=== PATIENT | male | born 1950 | race Caucasian/White ===

== ENCOUNTER 2017-06-26 12:30 | Emergency (ER) | payer OTHER ==
[~2017-06-26 12:30] MED LIST: ALAVERT10 M1 PO; AMOXICILLIN500 MG PO; ASPIRIN81 M1 PO; AZELASTINE NS; CARVEDILOL12.5 MG PO; CENTRUM SILVER1 TA2 PO; CIPROFLOXACIN500 MG PO; CLARITIN10 MG PO; CYCLOBENZAPRINE5 MG PO; DAYPRO600 M1 PO; GABAPENTIN300 M1 PO; GLIPIZIDE XL5 MG PO; GLIPIZIDE5 MG PO; IMDUR30 MG PO; KEFLEX500 MG PO; LANTUS100 U/ML SC; LIPITOR20 MG PO; LISINOPRIL10 MG PO; LISINOPRIL5 MG PO; MACROBID100 M1 PO; MEDROL DOSEPAK4 MG PO; MELOXICAM15 MG PO; NIACIN500 M3 PO; OMEPRAZOLE DR20 MG PO; PERCOCET 325 MG1 TA2 PO; PERCOCET 325 MG1 TA7 PO; PREDNISONE20 MG PO; TAMSULOSIN HYD0.4 MG PO; ULTRAM50 MG PO; VITAMIN D31000 IU PO; VYTORIN 10 MG-41 TA1 PO; ZITHROMAX Z PA250 MG PO; [UNRECOGNIZED DRUG - OTHER] NS
[2017-06-26 12:37] VITALS: BP 133/77
[2017-06-26] MEDS ORDERED: NAPROSYN500 MG PO (12:56)
[2017-06-26] MEDS ORDERED: AMOXICILLIN500 M2 PO (12:56)
== END 2017-06-26 13:29 | disposition home or self-care (01) ==
LOC: ED 12:30
DX: K08.89 Other specified disorders of teeth and supporting structures (principal); F17.200 Nicotine dependence, unspecified, uncomplicated; Z79.899 Other long term (current) drug therapy; Z79.82 Long term (current) use of aspirin

== ENCOUNTER → 2017-07-12 | Day surgery (SDC) | payer MEDICARE ==
[~2017-07-12] VITALS: Ht 170.1 cm; Wt 97.5 kg
[~2017-07-12] MED LIST changes: +AMOXICILLIN500 M2 PO; +LANTUS SOL100 UNIT/1 SC; -LANTUS100 U/ML SC; +NAPROSYN500 MG PO; +TAMSULOSIN HCL0.4 MG PO
--- NOTE | ~2017-07-12 | O ---
[place], [place] OPERATIVE NOTE NAME: JONNY MCRAE UNIT #: [id number] ROOM: DOCTOR: JG HERNDON MD BIRTHDATE: [birth year] DOS: 07/12/2017 HISTORY OF PRESENT ILLNESS: This is a 66-year-old patient who is presented with colonic screening, undergoing investigation. ALLERGIES: No known medication. FAMILY HISTORY: Noncontributory. PAST SURGICAL HISTORY: Appendectomy. PAST MEDICAL HISTORY: Asthma, hypertension, hyperlipidemia, diabetes mellitus. SOCIAL HISTORY: He is a smoker, nonalcohol consumer. PROCEDURE: Todays' procedure part of investigation is colonoscopy plus polypectomy x 3. PREMEDICATION: Versed and Diprivan. SCOPE: Olympus forward-viewing colonoscope 10L video. REPORT: After putting the patient in the left lateral position, application of lubricant to rectal pouch and digital examination, scope was introduced. Thereafter, under direct visualization, advanced through the length of colon without difficulty. Polypoid lesion in the rectal pouch, polypoid lesion in sigmoid colon with piecemeal polypectomy was removed and another polypoid lesion at the hepatic flexure with a snare polypectomized, base of cecum explored, appendiceal orifice identified, and scope was gradually withdrawn from ascending, transverse, descending colon. The patient extubated, tolerated procedure well. IMPRESSION: Colonic polyp, rubbery in character at the hepatic flexure, status post snare polypectomy. Two other polypectomies as the sigmoid and rectal pouch with piecemeal polypectomy without any concerns. I will be concerned about the results of the pathology on the polyp at hepatic flexure. I thank you very much indeed for your very kind referral. [place], [place] OPERATIVE NOTE NAME: JONNY MCRAE UNIT #: [id number] ROOM: DOCTOR: JG HERNDON MD BIRTHDATE: [birth year] JG HERNDON MD CM:OPRECORD:OPERATIVE NOTE [id number] JG HERNDON MD 07/12/17 1010 interface
[2017-07-12 07:06] VITALS: BP 144/87
[2017-07-12 07:57] VITALS: BP 108/69
[2017-07-12 08:12] VITALS: BP 126/79
[2017-07-12 08:27] VITALS: BP 141/72
== END | disposition home or self-care (01) ==
LOC: SDC 07-06 12:30
DX: Z12.11 Encounter for screening for malignant neoplasm of colon (principal); D12.8 Benign neoplasm of rectum; K63.5 Polyp of colon; E11.9 Type 2 diabetes mellitus without complications; J45.909 Unspecified asthma, uncomplicated; I10 Essential (primary) hypertension; I25.2 Old myocardial infarction; E78.00 Pure hypercholesterolemia, unspecified; F17.210 Nicotine dependence, cigarettes, uncomplicated; Z88.8 Allergy status to other drugs, medicaments and biological substances; Z90.49 Acquired absence of other specified parts of digestive tract

== ENCOUNTER → 2020-09-25 | Outpatient (CLI) | payer OTHER ==
[2020-09-25 11:57] LABS: ALBUMIN 3.5 gm/dl (3.1-4.5); BUN 11 mg/dl (7-24); CHLORIDE 109 mmol/L (98-107); HDL CHOLESTEROL 33 mg/dl (40-60); POTASSIUM 4.5 mmol/L (3.5-5.1); SODIUM 141 mmol/L (136-145)
[2020-09-25 12:02] LABS: ALKALINE PHOSPHATASE 100 U/L (45-117); BILIRUBIN, DIRECT 0.1 mg/dL (0.0-0.2); CHOLESTEROL 146 mg/dL (<200); CREATININE 0.96 mg/dL (0.70-1.30); LDL CHOLESTEROL 82 mg/dL (9-159); SGOT/AST 17 IU/L (3-35); SGPT/ALT 29 U/L (12-78); TOTAL PROTEIN 7.4 gm/dL (6.4-8.2); TRIGLYCERIDES 155 mg/dl (<150); VLDL CHOLESTEROL 31 mg/dL (6-40)
== END | disposition home or self-care (01) ==
LOC: LAB 10:07
PROVIDERS: ATTEND Internal Medicine
DX: I10 Essential (primary) hypertension (principal); E78.2 Mixed hyperlipidemia

== ENCOUNTER → 2021-06-18 | Outpatient (CLI) | payer OTHER | END | disposition home or self-care (01) | LOC: RAD 09:32 | PROVIDERS: ATTEND Internal Medicine | DX: M51.37 Other intervertebral disc degeneration, lumbosacral region (principal); M85.88 Other specified disorders of bone density and structure, other site ==

== ENCOUNTER → 2021-12-28 | Outpatient (CLI) | payer OTHER | LOC: US 01:49 | PROVIDERS: ATTEND Internal Medicine | DX: R31.0 Gross hematuria (principal) ==

== ENCOUNTER → 2022-01-05 | Outpatient (CLI) | payer OTHER ==
[~2022-01-05] MED LIST changes: +CIPRO250 MG PO; +PHENERGAN25 M3 PO
[2022-01-05 12:29] LABS: BASO # 0.1 10*3/uL (0.0-0.1); BASO % 0.8 % (0.0-1.0); EOS # 0.3 10*3/uL (0.0-0.4); EOS % 3.5 % (1.0-4.0); HEMATOCRIT 42.6 % (42.0-52.0); LYMPH # 1.9 10*3/uL (1.3-4.4); LYMPH % 21.5 % (27.0-41.0); MEAN CELL VOLUME 91.4 fl (80.0-94.0); MEAN CORPUSCULAR HGB 31.1 pg (27.0-31.0); MEAN PLATELET VOLUME 9.4 fl (9.6-12.3); MONO # 0.9 10*3/uL (0.1-1.0); MONO % 9.5 % (3.0-9.0); NEUT # 5.7 10*3/uL (2.3-7.9); NEUT % 64.4 % (47.0-73.0); PLATELET COUNT AUTOMATED 260 10*3/uL (130-400); RED BLOOD COUNT 4.66 10*6/uL (4.50-5.90); RED CELL DISTRI WIDTH 13.2 % (0-14.5); WHITE BLOOD COUNT 8.9 10*3/uL (4.8-10.8)
[2022-01-05 13:03] LABS: BUN 15 mg/dl (7-24); CHLORIDE 109 mmol/L (98-107); POTASSIUM 4.3 mmol/L (3.5-5.1); SODIUM 137 mmol/L (136-145)
[2022-01-05 13:11] LABS: ALKALINE PHOSPHATASE 79 U/L (45-117); CREATININE 0.95 mg/dL (0.70-1.30); SGOT/AST 18 IU/L (3-35); SGPT/ALT 31 U/L (12-78); TOTAL PROTEIN 6.9 gm/dL (6.4-8.2)
== END | disposition home or self-care (01) ==
LOC: LAB 11:43
PROVIDERS: ATTEND Urology
DX: I44.4 Left anterior fascicular block (principal); C67.9 Malignant neoplasm of bladder, unspecified; R31.9 Hematuria, unspecified

== ENCOUNTER 2022-01-10 08:13 | Emergency (ER) | payer OTHER ==
[~2022-01-10] VITALS: Ht 167.6 cm; Wt 97.5 kg
[~2022-01-10 08:13] MED LIST changes: -CIPRO250 MG PO; -PHENERGAN25 M3 PO
[2022-01-10 08:24] VITALS: BP 132/93
[2022-01-10 09:18] LABS: HEMATOCRIT 50.4 % (42.0-52.0); MEAN CELL VOLUME 88.9 fl (80.0-94.0); MEAN CORPUSCULAR HGB 30.9 pg (27.0-31.0); MEAN CORPUSCULAR HGB CONC 34.7 g/dl (33.0-37.0); MEAN PLATELET VOLUME 9.5 fl (9.6-12.3); PLATELET COUNT AUTOMATED 240 10*3/uL (130-400); RED BLOOD COUNT 5.67 10*6/uL (4.50-5.90); RED CELL DISTRI WIDTH 13.1 % (0-14.5); WHITE BLOOD COUNT 10.9 10*3/uL (4.8-10.8)
[2022-01-10 09:19] LABS: MANUAL DIFF REFLEX YES
[2022-01-10 09:36] LABS: CREATININE 2.12 mg/dL (0.70-1.30); POTASSIUM 4.2 mmol/L (3.5-5.1); TOTAL PROTEIN 7.9 gm/dL (6.4-8.2)
[2022-01-10 09:38] LABS: PLATELET SUFFICIENCY NORMAL (NORMAL); POLYCHROMASIA SLIGHT; TOTAL CELLS COUNTED 100 #CELLS
[2022-01-10 09:48] LABS: BILIRUBIN 2+ (Negative); BLOOD 3+ (Negative); CLARITY Cloudy (Clear); COLOR Dark Yellow (Yellow); GLUCOSE Trace (Negative); KETONE 1+ (Negative); LEUKO ESTERASE 1+ (Negative); NITRITE Negative (Negative); SPECIFIC GRAVITY 1.025 (1.001-1.030)
[2022-01-10 11:00] LABS: WBC 31-40 wbc/hpf (0-5)
[2022-01-10] MEDS ORDERED: CIPRO250 MG PO (11:36)
[2022-01-10] MEDS ORDERED: PHENERGAN25 M3 PO (11:36)
== END 2022-01-10 11:42 | disposition home or self-care (01) ==
LOC: ED 08:13
PROVIDERS: Emergency Medicine
DX: K52.9 Noninfective gastroenteritis and colitis, unspecified (principal); E86.0 Dehydration; N39.0 Urinary tract infection, site not specified; Z88.8 Allergy status to other drugs, medicaments and biological substances; Z79.899 Other long term (current) drug therapy; Z79.82 Long term (current) use of aspirin; Z90.49 Acquired absence of other specified parts of digestive tract

== ENCOUNTER → 2022-01-17 | Outpatient (CLI) | payer OTHER ==
[~2022-01-17] MED LIST changes: +CIPRO250 MG PO; +PHENERGAN25 M3 PO
== END | disposition home or self-care (01) ==
LOC: CT 10:49
PROVIDERS: ATTEND Urology
DX: R31.9 Hematuria, unspecified (principal)

== ENCOUNTER → 2022-12-23 | Outpatient (CLI) | payer OTHER ==
[2022-12-23 10:51] LABS: BASO # 0.1 10*3/uL (0.0-0.1); BASO % 0.7 % (0.0-1.0); EOS # 0.3 10*3/uL (0.0-0.4); EOS % 3.6 % (1.0-4.0); HEMATOCRIT 41.4 % (42.0-52.0); LYMPH # 1.8 10*3/uL (1.3-4.4); LYMPH % 20.8 % (27.0-41.0); MEAN CORPUSCULAR HGB 30.8 pg (27.0-31.0); MEAN CORPUSCULAR HGB CONC 34.5 g/dl (33.0-37.0); MEAN PLATELET VOLUME 9.6 fl (9.6-12.3); MONO # 0.7 10*3/uL (0.1-1.0); MONO % 8.4 % (3.0-9.0); NEUT # 5.6 10*3/uL (2.3-7.9); NEUT % 66.1 % (47.0-73.0); PLATELET COUNT AUTOMATED 285 10*3/uL (130-400); RED BLOOD COUNT 4.65 10*6/uL (4.50-5.90); RED CELL DISTRI WIDTH 12.7 % (0-14.5); WHITE BLOOD COUNT 8.5 10*3/uL (4.8-10.8)
[2022-12-23 11:02] LABS: BILIRUBIN Negative (Negative); BLOOD Negative (Negative); CLARITY Clear (Clear); COLOR Yellow (Yellow); GLUCOSE 3+ (Negative); KETONE Negative (Negative); LEUKO ESTERASE Negative (Negative); NITRITE Negative (Negative); PH 5.5 (4.5-8.0); SPECIFIC GRAVITY 1.025 (1.001-1.030); UROBILINOGEN 0.2 E.U./dl (0.0-1.0)
[2022-12-23 11:13] LABS: ALKALINE PHOSPHATASE 86 U/L (46-116); BUN 21 mg/dl (9-23); CHLORIDE 102 mmol/L (98-107); POTASSIUM 4.6 mmol/L (3.4-5.1); SGPT/ALT 30 U/L (10-49); TOTAL PROTEIN 6.8 gm/dL (6.0-8.0)
[2022-12-23 11:30] LABS: BACTERIA 1+; RBC 0-2 rbc/hpf (0-2)
== END | disposition home or self-care (01) ==
LOC: LAB 10:03
PROVIDERS: ATTEND Urology
DX: C67.9 Malignant neoplasm of bladder, unspecified (principal); D40.0 Neoplasm of uncertain behavior of prostate; R53.83 Other fatigue

== ENCOUNTER → 2023-04-05 | Outpatient (CLI) | payer OTHER ==
[2023-04-05 10:35] LABS: BASO # 0.1 10*3/uL (0.0-0.1); EOS # 0.3 10*3/uL (0.0-0.4); EOS % 4.7 % (1.0-4.0); HEMATOCRIT 39.2 % (42.0-52.0); LYMPH # 1.7 10*3/uL (1.3-4.4); LYMPH % 25.6 % (27.0-41.0); MEAN CELL VOLUME 90.1 fl (80.0-94.0); MEAN CORPUSCULAR HGB CONC 34.4 g/dl (33.0-37.0); MEAN PLATELET VOLUME 9.5 fl (9.6-12.3); MONO # 0.9 10*3/uL (0.1-1.0); MONO % 12.9 % (3.0-9.0); NEUT # 3.8 10*3/uL (2.3-7.9); NEUT % 55.4 % (47.0-73.0); PLATELET COUNT AUTOMATED 271 10*3/uL (130-400); RED BLOOD COUNT 4.35 10*6/uL (4.50-5.90); RED CELL DISTRI WIDTH 12.7 % (0-14.5); WHITE BLOOD COUNT 6.8 10*3/uL (4.8-10.8)
[2023-04-05 10:44] LABS: ACT PARTIAL THROMBO TIME 26.7 SECONDS (20.0-32.1)
[2023-04-05 11:04] LABS: ALKALINE PHOSPHATASE 84 U/L (46-116); BUN 18 mg/dl (9-23); CHLORIDE 105 mmol/L (98-107); POTASSIUM 4.3 mmol/L (3.4-5.1); SGPT/ALT 70 U/L (10-49); TOTAL PROTEIN 7.1 gm/dL (6.0-8.0)
== END | disposition home or self-care (01) ==
LOC: LAB 01:32 → CT 11:00 → LAB 11:00
PROVIDERS: ATTEND Urology
DX: C67.9 Malignant neoplasm of bladder, unspecified (principal); M41.86 Other forms of scoliosis, lumbar region; M16.0 Bilateral primary osteoarthritis of hip; I70.0 Atherosclerosis of aorta; I25.2 Old myocardial infarction; I44.4 Left anterior fascicular block; D40.0 Neoplasm of uncertain behavior of prostate; R53.83 Other fatigue; Z01.812 Encounter for preprocedural laboratory examination; Z79.82 Long term (current) use of aspirin

== ENCOUNTER 2024-01-13 00:20 | Emergency (ER) | payer OTHER ==
[~2024-01-13] VITALS: Ht 165.1 cm; Wt 99.8 kg
[2024-01-13 00:30] VITALS: BP 133/52
[2024-01-13] MEDS ORDERED: diphenhydrAMINE hydrochloride 50 MG/ML VIAL IM ONE (00:40)
[2024-01-13] MEDS ORDERED: Dexamethasone Sodium Phospha 20 MG/5 ML VIAL IM ONE (00:45)
== END 2024-01-13 01:15 | disposition home or self-care (01) ==
LOC: ED 00:20
DX: L29.9 Pruritus, unspecified (principal); E11.9 Type 2 diabetes mellitus without complications; I10 Essential (primary) hypertension; I25.2 Old myocardial infarction; T36.8X5A Adverse effect of other systemic antibiotics, initial encounter; Z88.1 Allergy status to other antibiotic agents; Z88.8 Allergy status to other drugs, medicaments and biological substances; Z90.49 Acquired absence of other specified parts of digestive tract; Z98.890 Other specified postprocedural states; Y92.89 Other specified places as the place of occurrence of the external cause

== ENCOUNTER → 2024-01-24 | Outpatient (CLI) | payer OTHER ==
[2024-01-24 12:17] LABS: BASO # 0.1 10*3/uL (0.0-0.1); BASO % 0.8 % (0.0-1.0); EOS # 0.2 10*3/uL (0.0-0.4); EOS % 1.6 % (1.0-4.0); HEMATOCRIT 39.6 % (42.0-52.0); LYMPH # 1.9 10*3/uL (1.3-4.4); LYMPH % 18.5 % (27.0-41.0); MEAN CELL VOLUME 90.8 fl (80.0-94.0); MEAN CORPUSCULAR HGB 29.6 pg (27.0-31.0); MEAN CORPUSCULAR HGB CONC 32.6 g/dl (33.0-37.0); MEAN PLATELET VOLUME 8.9 fl (9.6-12.3); MONO # 0.7 10*3/uL (0.1-1.0); MONO % 6.7 % (3.0-9.0); NEUT # 7.2 10*3/uL (2.3-7.9); PLATELET COUNT AUTOMATED 418 10*3/uL (130-400); RED BLOOD COUNT 4.36 10*6/uL (4.50-5.90); RED CELL DISTRI WIDTH 13.1 % (0-14.5); WHITE BLOOD COUNT 10.1 10*3/uL (4.8-10.8)
[2024-01-24 12:33] LABS: BILIRUBIN Negative (Negative); BLOOD Trace-Lysed (Negative); CLARITY Cloudy (Clear); COLOR Yellow (Yellow); GLUCOSE Negative (Negative); KETONE Negative (Negative); LEUKO ESTERASE 3+ (Negative); NITRITE Negative (Negative); PH 5.5 (4.5-8.0); UROBILINOGEN 0.2 E.U./dl (0.0-1.0)
[2024-01-24 12:53] LABS: WBC TNTC wbc/hpf (0-5)
[2024-01-24 12:54] LABS: ALKALINE PHOSPHATASE 94 U/L (46-116); BACTERIA TRACE; BUN 16 mg/dl (9-23); CHLORIDE 102 mmol/L (98-107); POTASSIUM 4.6 mmol/L (3.4-5.1); SGPT/ALT 28 U/L (5-49); TOTAL PROTEIN 6.9 gm/dL (6.0-8.0)
== END | disposition home or self-care (01) ==
LOC: LAB 11:43
PROVIDERS: ATTEND Urology
DX: C67.1 Malignant neoplasm of dome of bladder (principal); D40.0 Neoplasm of uncertain behavior of prostate; R53.83 Other fatigue

== ENCOUNTER → 2024-03-06 | Outpatient (CLI) | payer OTHER ==
[~2024-03-06] MED LIST changes: +IOHEXOL 350 MG/ML 100 ML VIAL IV ONE; +SODIUM CHLORIDE 0.9% 100 ML BAG IV ONE
== END | disposition home or self-care (01) ==
LOC: CT 01:34
PROVIDERS: ATTEND Urology
DX: C67.9 Malignant neoplasm of bladder, unspecified (principal); M48.07 Spinal stenosis, lumbosacral region; M51.37 Other intervertebral disc degeneration, lumbosacral region

== ENCOUNTER 2024-06-28 08:19 | Emergency (ER) | payer OTHER ==
[~2024-06-28] VITALS: Ht 152.4 cm; Wt 95.3 kg
[~2024-06-28 08:19] MED LIST changes: -IOHEXOL 350 MG/ML 100 ML VIAL IV ONE; -SODIUM CHLORIDE 0.9% 100 ML BAG IV ONE
[2024-06-28 08:30] VITALS: BP 119/47
[2024-06-28] MEDS ORDERED: diphenhydrAMINE hydrochloride 25 MG CAP PO SCH (08:40)
[2024-06-28] MEDS ORDERED: KEFLEX 500 MG E2 CAP PO (08:41)
== END 2024-06-28 08:33 | disposition home or self-care (01) ==
LOC: ED 08:19
DX: L27.0 Generalized skin eruption due to drugs and medicaments taken internally (principal); T36.8X5A Adverse effect of other systemic antibiotics, initial encounter; Z88.2 Allergy status to sulfonamides; Z88.8 Allergy status to other drugs, medicaments and biological substances; Z88.1 Allergy status to other antibiotic agents; Z79.899 Other long term (current) drug therapy; Z79.2 Long term (current) use of antibiotics; Z79.82 Long term (current) use of aspirin; Z79.4 Long term (current) use of insulin; Z98.890 Other specified postprocedural states; Y92.89 Other specified places as the place of occurrence of the external cause

== ENCOUNTER 2025-03-12 02:01 | Emergency (ER) | payer OTHER ==
[~2025-03-12] VITALS: Ht 175.2 cm; Wt 95.9 kg
[~2025-03-12 02:01] MED LIST changes: +KEFLEX 500 MG E2 CAP PO
[2025-03-12] MEDS ORDERED: EPINEPHrine Hydrochloride 1 MG/10 ML SYR IV ONE (16:27)
== END 2025-03-12 05:00 ==
LOC: ED 02:01
DX: I46.9 Cardiac arrest, cause unspecified (principal); Z79.899 Other long term (current) drug therapy; I10 Essential (primary) hypertension; E11.9 Type 2 diabetes mellitus without complications; Z79.84 Long term (current) use of oral hypoglycemic drugs; Z79.4 Long term (current) use of insulin; Z79.82 Long term (current) use of aspirin; Z90.49 Acquired absence of other specified parts of digestive tract; Z98.890 Other specified postprocedural states; Z88.1 Allergy status to other antibiotic agents; Z88.2 Allergy status to sulfonamides; Z88.8 Allergy status to other drugs, medicaments and biological substances